=== PATIENT | female | born 1985 | race Caucasian/White ===

== ENCOUNTER 2019-02-05 02:49 | Emergency (ER) | payer SELFPAY ==
[~2019-02-05] VITALS: Ht 182.9 cm; Wt 79.4 kg
[2019-02-05 02:50] VITALS: Ht 182.9 cm; Wt 79.4 kg
[2019-02-05 04:11] VITALS: BP 137/97
== END 2019-02-05 04:11 | disposition other institution (70) ==
LOC: ED 02:49
DX: S92.512A Displaced fracture of proximal phalanx of left lesser toe(s), initial encounter for closed fracture (principal); S00.83XA Contusion of other part of head, initial encounter; W22.03XA Walked into furniture, initial encounter; Y93.89 Activity, other specified; Y92.89 Other specified places as the place of occurrence of the external cause; Y99.8 Other external cause status

== ENCOUNTER 2019-02-05 02:49 | Emergency (ER) | payer OTHER | END 2019-02-05 04:11 | disposition other institution (70) | LOC: ED 02:49 | DX: Z02.89 Encounter for other administrative examinations (principal) ==